=== PATIENT | male | born 1990 | race Two or more races ===

== ENCOUNTER → 2018-11-02 | Day surgery (SDC) | payer SELFPAY ==
[~2018-11-02] MED LIST: CITA20TA6 PO; HYDROmorphone 2 MG/ML VIAL IV PRN; IV RINGERS,LACTATED 1000ML 1,000 ML IV SCH; LIDOCAINE 2% PF 5 ML VIAL. ONE; MORPHINE SULFATE 2 MG/ML VIAL. IV PRN; ONDANSETRON PF 4 MG/2 ML VIAL. IV PRN; PANT40TA77 PO; PROCHLORPERAZINE 10 MG/2 ML VIAL. IV PRN; PROPOFOL 40 ML IV ONE; fentaNYL PF VIAL 100 MCG/2 ML VIAL IV PRN
[2018-11-02 10:20] VITALS: BP 115/75
--- NOTE | 2018-11-03 15:07 | PATHOLOGY ---
[facility] Accession Number: [id number] . 01 Material submitted: . PART A: small bowel - SMALL BOWEL BX PART B: stomach - GASTRIC, ANTRUM BODY BX PART C: esophagus - DISTAL ESOPHAGUS. Modifiers: distal PART D: esophagus - MID-ESOPHAGUS BX. Modifiers: mid PART E: ileum - TERMINAL ILEUM PART F: cecum - CECUM BX PART G: colon - ASCENDING COLON BX. Modifiers: ascending PART H: colon - TRANSVERSE COLON BX. Modifiers: transverse PART I: colon - DESCENDING COLON BX. Modifiers: descending PART J: sigmoid colon - SIGMOID BX PART K: rectum - RECTUM BX . 01 Clinical history: . Pre-OP DX: GERD, dysphagia, blood in stool Post-OP DX: Reflux . 02 Diagnosis: A. Small bowel, biopsy: - Duodenal mucosa with intact villous architecture and focal features suggestive of peptic duodenitis. . B. Stomach, antrum and body, biopsy: - Mild chronic inactive gastritis. - An H. pylori immunostain is negative (B1; appropriate controls). . C. Esophagus, distal, biopsy: - Squamocolumnar junctional mucosa; acute and chronically inflamed. - Negative for intestinal metaplasia. . D. Esophagus, mid, biopsy: - Unremarkable squamous mucosa. . E. Terminal ileum, biopsy: - Active ileitis, mild and focal. - Negative for granulomas. . F. Cecum, biopsy: - Chronic active colitis, moderate. - Negative for granulomas. . G. Ascending colon, biopsy: - Chronic active colitis, mild to moderate. - Negative for granulomas. . H. Transverse colon, biopsy: - Chronic active colitis, moderate to focally severe. - Negative for granulomas. . I. Descending colon, biopsy: - Chronic active colitis, moderate. - Negative for granulomas. . J. Sigmoid colon, biopsy: - Chronic active colitis, moderate. - Negative for granulomas. . K. Rectum, biopsy: - Chronic active colitis, moderate. - Negative for granulomas. (MAP:[facility]; 11/03/2018) [facility] [place] [facility] [place] 0944 Local . 02 Electronically signed: . Donald Mccurdy MD, Pathologist NPI- [id number] . 01 Gross description: . A. Received in formalin labeled "Brody Morrow, small bowel BX," are 3 segments of leavitt soft tissue measuring 0.7 x 0.6 x 0.3 cm in aggregate dimensions and ranging from 0.3 to 0.4 cm in maximum dimension. The specimen is submitted entirely in cassette A1. . B. Received in formalin labeled "Brody Morrow, gastric antrum body BX," are 4 segments of leavitt soft tissue measuring 1.4 x 0.6 x 0.3 cm in aggregate dimensions and ranging from 0.3 to 0.7 cm in maximum dimension. The specimen is submitted entirely in cassette B1. . C. Received in formalin labeled "Cristhian, Brody, distal esophagus BX," are 3 segments of leavitt soft tissue measuring 1.3 x 0.6 x 0.3 cm in aggregate dimensions and ranging from 0.3 to 0.5 cm in maximum dimension. The specimen is submitted entirely in cassette C1. . D. Received in formalin labeled "Brody Morrow, mid esophagus BX," are 3 segments of leavitt soft tissue measuring 0.8 x 0.5 x 0.1 cm in aggregate dimensions and ranging from 0.2 to 0.3 cm in maximum dimension. The specimen is submitted entirely in cassette D1. . E. Received in formalin labeled "Cristhian, Brody, terminal ileum BX," are 3 segments of leavitt soft tissue measuring 1.1 x 0.5 x 0.3 cm in aggregate dimensions and ranging from 0.4 to 0.6 cm in maximum dimension. The specimen is submitted entirely in cassette E1. . F. Received in formalin labeled "Cristhian, Brody, cecum BX," are 4 segments of leavitt soft tissue measuring 1.3 x 0.5 x 0.2 cm in aggregate dimensions and ranging from 0.4 to 0.5 cm in maximum dimension. The specimen is submitted entirely in cassette F1. . G. Received in formalin labeled "Cristhian, Brody, ascending colon BX," are 4 segments of leavitt soft tissue measuring 1.0 x 0.7 x 0.3 cm in aggregate dimensions and ranging from 0.3 to 0.6 cm in maximum dimension. The specimen is submitted entirely in cassette G1. . H. Received in formalin labeled "Brody Morrow, transverse colon BX," are 6 segments of leavitt soft tissue measuring 1.9 x 1.5 x 0.3 cm in aggregate dimensions and ranging from 0.5 to 0.7 cm in maximum dimension. The specimen is submitted entirely in cassette H1. . I. Received in formalin labeled "Brody Morrow, descending colon BX," are 5 segments of leavitt soft tissue measuring 1.5 x 0.9 x 0.3 cm in aggregate dimensions and ranging from 0.3 to 0.5 cm in maximum dimension. The specimen is submitted entirely in cassette I1. . J. Received in formalin labeled "Brody Morrow, sigmoid colon BX," are 4 segments of leavitt soft tissue measuring 1.4 x 0.7 x 0.3 cm in aggregate dimensions and ranging from 0.3 to 0.7 cm in maximum dimension. The specimen is submitted entirely in cassette J1. . K. Received in formalin labeled "Brody Morrow, rectum BX," are 5 segments of leavitt soft tissue measuring 1.3 x 0.7 x 0.3 cm in aggregate dimensions and ranging from 0.2 to 0.4 cm in maximum dimension. The specimen is submitted entirely in cassette K1. ([facility]; 11/02/2018) TOB/TOB 11/03/2018 0956 Local . 02 Pathologist provided ICD-10: K29.80, K29.50, K20.9, K52.9 . 02 CPT . 227787, 751632, 211161, 729338, 320164, 100299, 686804, 768959, 822277, 987464, [id number], [id number] Specimen Comment: A courtesy copy of this report has been sent to Specimen Comment: [phone], . Specimen Comment: Report sent to / DR ROJO Performed at: [address], [place], [place] [id number] MD Brad Severino MD Phone: [phone] Performed at: [address] [id number] MD Domi Davis MD Phone: [phone]
== END ==
LOC: ENDOS 07:53
PROVIDERS: ATTEND Internal Medicine Gastroenterology
DX: K21.0 Gastro-esophageal reflux disease with esophagitis (principal); K29.50 Unspecified chronic gastritis without bleeding; K64.0 First degree hemorrhoids; K52.9 Noninfective gastroenteritis and colitis, unspecified; K22.2 Esophageal obstruction; E78.00 Pure hypercholesterolemia, unspecified; I10 Essential (primary) hypertension; F41.9 Anxiety disorder, unspecified; E66.01 Morbid (severe) obesity due to excess calories; Z68.42 Body mass index [BMI] 45.0-49.9, adult; Z72.89 Other problems related to lifestyle
CPT/HCPCS: 43233; 43239; 45380; 88305; 88342; J2001; J2704